=== PATIENT | female | born 1985 | race Hispanic/Latino ===

== ENCOUNTER 2016-12-15 09:46 | Inpatient (IN) | payer OTHER ==
[2016-12-15 10:05] LABS: Basophils % (Auto) 1.8 % (0.0-1.8); Eosinophils % (Auto) 3.1 % (0.0-4.3); Hematocrit 44.1 % (30.3-42.9); Hemoglobin 15.1 gm/dl (10.1-14.3); Mean Corpuscular HGB Conc 34 % (30-34); Mean Corpuscular Hemoglobin 31 pg (28-32); Mean Corpuscular Volume 92 fl (79-97); Platelet Count 191 K/mm3 (140-440); Red Cell Distribution Width 12.8 % (13.2-15.2); White Blood Count 3.9 K/mm3 (4.5-11.0)
--- NOTE | 2016-12-15 10:06 | Cat Scan Report ---
CT HEAD WITHOUT CONTRAST: HISTORY: CVA. Serial contiguous axial images were obtained through the cranium. Intravenous contrast material was not administered. The ventricles are normal in size and appearance. There is no mass effect or midline shift. No areas of abnormally increased or decreased attenuation are seen. No mass lesion is seen. The mastoid air cells and visualized portions of the sinuses are normal. IMPRESSION: Cranial CT scan within normal limits. These findings were discussed with Dr. Gan in the emergency department at 1003 hrs.
[2016-12-15 10:14] LABS: INR 0.95 (0.87-1.13)
[2016-12-15 10:15] LABS: Partial Thromboplastin Time 25.4 Sec. (24.2-36.6)
[2016-12-15] MEDS ORDERED: MORPHINE IV ONE (10:18)
[2016-12-15] MEDS ORDERED: ZOFRAN IV ONE (10:18)
[2016-12-15 10:21] LABS: Anion Gap 23 mmol/L; BUN/Creatinine Ratio 11.42; Blood Urea Nitrogen 8 mg/dL (7-17); Calcium 9.5 mg/dL (8.4-10.2); Carbon Dioxide 19 mmol/L (22-30); Chloride 101.2 mmol/L (98-107); Glucose 136 mg/dL (65-100); Potassium 3.9 mmol/L (3.6-5.0); Sodium 139 mmol/L (137-145)
--- NOTE | 2016-12-15 10:25 | Emergency Department Report ---
HPI - General Chief Complaint: Neuro Symptoms/Deficit Time Seen by Provider: 12/15/16 10:08 - HPI HPI: 31-year-old female presents to ED with left arm weakness and right facial droop that started upon awakening. Patient does not have medical history. Upon awakening she started feeling a left-sided tingling, then noticed that her left thumb was very happy to follow wishes could not pick it up. She noticed his drooping on the right side. When she went to bed last night she was completely normal. She went to bed around 940. She did not wake up in the middle of the night. She noticed this symptom as soon as she woke up if all putting her last time normal at 9:40 PM last night. NIH stroke scale : 2 ED Past Medical Hx - Past Medical History Additional medical history: Chron's disease - Surgical History Hx Appendectomy: Yes Additional Surgical History: C section x's2 - Social History Smoking Status: Current Every Day Smoker Substance Use Type: None - Medications Home Medications: Home Medications Medication Instructions Recorded Confirmed Last Taken Type Ibuprofen [Motrin] 200 mg PO Q6H PRN 12/15/16 12/15/16 Unknown History Loratadine [Claritin] 10 mg PO DAILY 12/15/16 12/15/16 Unknown History Oxymetazoline HCl [Nasal [place]] 30 ml NS PRN 12/15/16 12/15/16 Unknown History ED Review of Systems ROS: Stated complaint: POSS CVA Other details as noted in HPI Physical Exam - Physical Exam Vital Signs: Vital Signs 12/15/16 12/15/16 12/15/16 10:01 10:02 10:12 Temperature 98.7 F Pulse Rate 76 Respiratory 16 Rate Blood Pressure 124/81 Blood Pressure 124/81 [Right] O2 Sat by Pulse 100 100 Oximetry Physical Exam: - Physical Exam NIH stroke scale: 2 - General Limitations: No Limitations General appearance: alert, in no apparent distress, obese - Head Head exam: Present: atraumatic, normocephalic - Eye Eye exam: Present: normal appearance - ENT ENT exam: Present: mucous membranes moist - Neck Neck exam: Present: normal inspection - Respiratory Respiratory exam: Present: normal lung sounds bilaterally. Absent: respiratory distress - Cardiovascular Cardiovascular Exam: Present: normal rhythm, tachycardia. Absent: systolic murmur, diastolic murmur, rubs, gallop - GI/Abdominal GI/Abdominal exam: Present: soft, normal bowel sounds - Extremities Exam Extremities exam: Present: normal inspection - Back Exam Back exam: Present: normal inspection - Neurological Exam Neurological exam: Present: Right facial droop, left upper extremity strength 3 out of 5 - Psychiatric Psychiatric exam: normal affect and mood - Skin Skin exam: Present: warm, dry, intact, normal color. Absent: rash ED Course Vital Signs 12/15/16 12/15/16 12/15/16 10:01 10:02 10:12 Temperature 98.7 F Pulse Rate 76 Respiratory 16 Rate Blood Pressure 124/81 Blood Pressure 124/81 [Right] O2 Sat by Pulse 100 100 Oximetry ED Medical Decision Making - Lab Data Result diagrams: 12/15/16 09:57 12/15/16 09:57 Critical care attestation.: If time is entered above; I have spent that time in minutes in the direct care of this critically ill patient, excluding procedure time. ED Disposition Clinical Impression: CVA (cerebral vascular accident) Qualifiers: CVA mechanism: unspecified Qualified Code(s): I63.9 - Cerebral infarction, unspecified Disposition: DC-09 OP ADMIT IP TO THIS HOSP Is pt being admited?: Yes Does the pt Need Aspirin: Yes Condition: Stable
[2016-12-15] MEDS ORDERED: NACL ONE (10:27)
--- NOTE | 2016-12-15 11:09 | XRay Report ---
AP CHEST: HISTORY: chest pain AP view of the chest demonstrates a normal mediastinal and cardiac contour with clear lungs and normal bony and soft tissue structures. IMPRESSION: Unremarkable AP chest.
--- NOTE | 2016-12-15 11:17 | Cat Scan Report ---
CT angiography of the neck including axial images, reformatted sagittal and coronal images, and 3-D reconstructed images. History: Left hemiparesis. Findings: The origins of the 3 great vessels from the aortic arch appear normal. The common carotid arteries are normal throughout . Both common carotid bifurcations are patent with no evidence of atheromatous plaque. The proximal internal carotid arteries appear normal. The vertebral arteries are symmetrical and patent. Impression: Normal study.
--- NOTE | 2016-12-15 11:31 | Cat Scan Report ---
CT angiography of the head with axial images, reformatted sagittal and coronal images, and 3-D reconstructed images. History: Left kidney comparisons. Findings: The distal carotid arteries are normal. The right anterior and middle cerebral arteries appear normal with no filling defects or stenoses. The left anterior and middle cerebral arteries are also normal. There is no evidence of aneurysm or AVM. The distal vertebral arteries and basilar artery are widely patent. The posterior cerebral arteries are symmetrical and normal. Impression: Normal study.
[2016-12-15] MEDS ORDERED: ASPIRIN ONE (11:35)
[2016-12-15] MEDS ORDERED: ASPIRIN PO ONE (11:38)
--- NOTE | 2016-12-15 11:51 | Admit Criteria Form ---
Admission Criteria Documentation: NEUROLOGY GRG Clinical Indications for Admission to Inpatient Care (Place ' X' for any and all applicable criteria): Hospital admission is needed for appropriate care of the patient because of 1 or more of the following: [ ]I. Encephalitis [ ]II. Severe [employer] infections indicated by 1 or more of the following(1)(2)(3) : [ ]a) Intracranial abscess [ ]b) Spinal abscess or myelitis [ ]c) Tuberculous or other nonbacterial, nonviral [employer] infection(8) [ ]III. Vasculitis and 1 or more of the following(14)(15): []a) Altered mental status that is severe or persistent or other acute neurologic change []b) Psychosis []c) Seizure [ ]IV. Status epilepticus or repetitive seizures not controlled with emergent treatment [A] (7)(8) [ ]V. Altered mental status that is severe or persistent [ ]. Transient alteration in consciousness with high-risk etiology; examples include (12)(13): [ ]a) Cardiovascular source [ ]b) Cataplexy [ ]VII. Cerebral aneurysm requiring ANY ONE of the following(14): [ ]a) IV antihypertensives or vasoactive agents [ ]b) Sedation and analgesia for suspected leak [ ]c) Need for external ventricular drainage and cerebral perfusion pressure monitoring [ ]d) Emergent evaluation to determine need for surgical clipping or endovascular coiling by interventional radiology. If surgery is required ( Also use Craniotomy, Supratentorial, for Surgery of Bleeding Intracranial Aneurysm (for bleeding aneurysm) or Craniotomy, Supratentorial (for nonbleeding aneurysm) as appropriate. [ ]VIII. New-onset severe neurologic symptom requiring inpatient care indicated by ANY ONE of the following: [ ]a) Aphasia(15) [ ]b) Weakness (grade 3 or less) [ ]c) Paralysis (eg, hemiplegia) [ ]d) Spasticity(16) [ ]e) Dystonia [ ]e) Ataxia(17) [ ]f) Amnesia(18) [ ]g) Involuntary movements(19) [ ]h) Vertigo [ ] Visual loss [ ]i) Other severe neurologic finding (eg, papilledema, mass effect on imaging, myoclonus not treatable at alternative level of care (eg, observation care) [ ]IX. Guillain-[place] syndrome(20) [ ]X. Myasthenia gravis crisis or inpatient monitoring need as indicated by 1 or more of the following(21): [ ]a) Intensive treatment (eg, course of plasmapheresis) with inadequate outpatient situation to monitor patients status [ ]b) Inadequate airway protection [ ]c) Respiratory insufficiency requiring intubation or inpatient. monitoring [ ]d) Progressive dysphagia with failure to thrive [ ]XI. Multiple sclerosis or other acute demyelinating disease requiring inpatient care as indicated by 1 or more of the following (22)(23): [ ]a) Acute severe deterioration requiring inpatient treatment (eg, IV steroids, plasmapheresis, close observation) [ ]b) Acute complication requiring inpatient care (eg, sepsis, severe decubitus, aspiration) [ ]XII.Parkinson disease requiring inpatient care (Also use Optimal Recovery Care Criteria or General Recovery Criteria as appropriate) indicated by 1 or more of the following(25): [ ]a) Infection (eg, aspiration pneumonia) not treatable at alternative level of care [ ]b Dehydration that is severe or persistent [ ]c) Life-threatening agitation or psychotic behavior not treatable on emergency, observation care, or alternative level (eg, residential) basis [ ]d) Severe medication withdrawal effects (eg, freezing, neuroleptic malignant syndrome) not responsive to emergency and observation care treatment ( as appropriate) [ ]e) Other severe manifestation not treatable at alternative level of care [ ]XII. Amyotrophic lateral sclerosis with inpatient care needs as indicated by ANY ONE of the following(26): [ ]a) Acute complications (eg, aspiration pneumonia, sepsis ) requiring inpatient care ( see other optimal Recovery Guideline as appropriate) [ ]b) Dehydration that is severe persistent AND artificial support desired [ ]c) Inadequate airway protection AND artificial support desired [ ]d) Severe ventilatory insufficiency AND artificial support desired [ ]XIII. Myasthenia gravis crisis or inpatient monitoring need as indicated by 1 or more of the following(21): [] a) Inadequate airway protection []b) Respiratory insufficiency requiring intubation or inpatient monitoring []c) Progressive dysphagia with failure to thrive []d) Intensive treatment (e.g., course of plasmapheresis) with inadequate outpatient situation to monitor patients status [ ]XIV. Multiple sclerosis or other acute demyelinating disease requiring inpatient care indicated by 1 or more of the following[C](36)(43)(44)(45)(46): []a) Acute severe deterioration requiring inpatient treatment (eg, IV steroids, plasmapheresis, close observation) []b) Acute complication requiring inpatient care (eg, sepsis, severe decubitus, aspiration) [ ]XV. Intracranial hypertension (e.g., pseudotumor cerebri) requiring inpatient care (e.g., acute visual loss, inadequate oral intake) (47)(48)(49) [ ]XVI. Parkinson disease requiring inpatient care (Also use Optimal Recovery Care Criteria or General Recovery Criteria as appropriate) indicated by 1 or more of the following(25): [] a) Infection (e.g., aspiration pneumonia) not treatable at alternative level of care []b) Volume depletion not responsive to emergency and observation care treatment (as appropriate) []c) Life-threatening agitation or psychotic behavior not treatable on emergency, observation care, or alternative level (e.g., residential) basis []d) Severe medication withdrawal effects (e.g., freezing, neuroleptic malignant syndrome) not responsive to emergency and observation care treatment (as appropriate) []e) Other severe manifestation not treatable at alternative level of care [ ]XVII. Amyotrophic lateral sclerosis with inpatient care needs as indicated by1 or more of the following(42): []a) Acute complications (eg, aspiration pneumonia, sepsis) requiring inpatient care (see other Optimal Recovery Guideline or General Recovery Guideline as appropriate) []b) Dehydration that is severe or persistent AND artificial support desired []c) Inadequate airway protection AND artificial support desired []d) Severe ventilatory insufficiency AND artificial support desired [ ]XVIII. Severe myopathy, neuropathy, or other neuromuscular disease indicated by 1 or more of the following(42)(52)(53)(54): []a ) New-onset severe diffuse weakness (eg, strength 3/5 or less) []b) Severe dysphagia []c) Dyspnea at rest or with minimal exertion (new) []d) Inadequate airway protection []e) Inadequate ventilation indicated by 1 or more of the following : i) Partial pressure of carbon dioxide greater than 44 mm Hg ( 5.9 kPa) (new) ii) Reduced peak expiratory flow rate (new) iii) Vital capacity less than 50% of predicted (less than 15 mL/kg) iv) Peak inspiratory force less negative than -30 cm H2O (- 2942 Pa) [ ]XVII.Complications of congenital or degenerative disease (eg, infection, seizures, dehydration, injury) not responsive to emergency and observation care treatment (as appropriate ) [C](16)(29)(30) [ ]XVIII.Suspected or confirmed nerve or muscle toxic injury, including ANY ONE of the following: [ ]a) Rhabdomyolysis(31) i) Acute renal failure ii) Dehydration that is severe or persistent iii) Altered mental status that is severe or persistent iv) Electrolyte abnormality that remains after emergency or observation level care ( as appropriate) [ ]b) Botulism(32) [ ]c) Other severe toxin-induced sign or symptom [ ]XIX. Neurologic trauma requiring inpatient treatment (medical) indicated by ANY ONE of the following(33)(34): [ ]a) Vital signs or neurologic signs more frequently than every 4 hours [ ]b) Hyperosmolar therapy [ ]c) Respiratory monitoring [ ]d) Intracranial pressure monitoring and treatment [ ]e) Stabilization and immobilization device placement (eg, braces, body jacket) [ ]f) Intubation & mechanical ventilation for airway protection or therapeutic hyperventilation [ ]g) Other treatment or monitoring needed that requires inpatient level of care [ ]XX.Complications of neurologic devices (eg, ventricular shunt, neurostimulator) requiring 1 or more of the following(35)(36): [ ]a) IV antibiotics with monitoring while awaiting culture results [ ]b) Monitoring for hydrocephalus [X]XXI. Neurology condition symptom, or finding for which emergency and observation care have failed or are not considered appropriate. See General Criteria: Observation Care ISC, General Admission Criteria GRG, or Pediatric General Admission Criteria GRG guideline as appropriate. The original [facility] [employer] content created by [employer] has been revised. The portions of the content which have been revised are identified through the use of italic text or in bold, and [facility] has neither reviewed nor approved the modified material. All other unmodified content is copyright [facility] Please see references footnoted in the original [facility] edition 2016 Admission Criteria Met: Yes
[2016-12-15] MEDS ORDERED: NEURONTIN ONE (12:00)
[2016-12-15] MEDS ORDERED: MOTRIN PO ONE ×2 (14:00→16:01)
--- NOTE | 2016-12-15 14:30 | Cat Scan Report ---
CT of the chest without contrast. History:Left weakness Findings: The lungs are clear. There are no masses or nodules. The mediastinum and hilar regions are unremarkable although evaluation is less sensitive without intravenous contrast. There is no pleural fluid. Impression: Negative study.
[2016-12-15] MEDS ORDERED: NEURONTIN PO ONE (15:00)
[2016-12-15 20:54] LABS: Urine Drugs of Abuse Note Disclamer
[2016-12-15 21:03] LABS: Bilirubin,Urine NEG (Negative); Blood,Urine NEG (Negative); Ketones,Urine NEG (Negative); Leukocyte Esterase,Urine NEG (Negative); Mucus,Urine FEW /HPF; Nitrite,Urine NEG (Negative); Protein,Urine <15 mg/dL mg/dL (Negative); RBC,Urine < 1.0 /HPF (0.0-6.0); Urobilinogen,Urine < 2.0 mg/dL (<2.0); WBC,Urine < 1.0 /HPF (0.0-6.0)
[2016-12-15] MEDS ORDERED: DULCOLAX PR PRN (21:40)
[2016-12-15] MEDS ORDERED: DILAUDID IV PRN (21:40)
[2016-12-15] MEDS ORDERED: AMBIEN PO PRN (21:40)
[2016-12-15] MEDS ORDERED: ZOFRAN IV PRN (21:40)
[2016-12-15] MEDS ORDERED: TYLENOL PO PRN (21:40)
[2016-12-15] MEDS ORDERED: MILK OF MAGNESIA PO PRN (21:40)
--- NOTE | 2016-12-15 21:40 | History and Physical Report ---
History of Present Illness Date of examination: 12/15/16 Date of admission: 12/15/16 11:31 Medications and Allergies Allergies Allergy/AdvReac Type Severity Reaction Status Date / Time No Known Allergies Allergy Verified 12/15/16 10:42 Home Medications Medication Instructions Recorded Confirmed Last Taken Type Ibuprofen [Motrin] 200 mg PO Q6H PRN 12/15/16 12/15/16 Unknown History Loratadine [Claritin] 10 mg PO DAILY 12/15/16 12/15/16 Unknown History Oxymetazoline HCl [Nasal [place]] 30 ml NS PRN 12/15/16 12/15/16 Unknown History Exam - Constitutional Vitals: Temp Pulse Resp BP Pulse Ox 98.7 F 70 14 118/68 99 12/15/16 10:12 12/15/16 20:00 12/15/16 15:15 12/15/16 19:15 12/15/16 15:15 Results - Labs CBC & Chem 7: 12/15/16 09:57 12/15/16 09:57 Labs: Laboratory Last Values WBC 3.9 K/mm3 (4.5-11.0) L 12/15/16 09:57 RBC 4.80 M/mm3 (3.65-5.03) 12/15/16 09:57 Hgb 15.1 gm/dl (10.1-14.3) H 12/15/16 09:57 Hct 44.1 % (30.3-42.9) H 12/15/16 09:57 MCV 92 fl (79-97) 12/15/16 09:57 MCH 31 pg (28-32) 12/15/16 09:57 MCHC 34 % (30-34) 12/15/16 09:57 RDW 12.8 % (13.2-15.2) L 12/15/16 09:57 Plt Count 191 K/mm3 (140-440) 12/15/16 09:57 Lymph % (Auto) 30.5 % (13.4-35.0) 12/15/16 09:57 [place] % (Auto) 8.3 % (0.0-7.3) H 12/15/16 09:57 Eos % (Auto) 3.1 % (0.0-4.3) 12/15/16 09:57 Baso % (Auto) 1.8 % (0.0-1.8) 12/15/16 09:57 Lymph # 1.2 K/mm3 (1.2-5.4) 12/15/16 09:57 [place] # 0.3 K/mm3 (0.0-0.8) 12/15/16 09:57 Eos # 0.1 K/mm3 (0.0-0.4) 12/15/16 09:57 Baso # 0.1 K/mm3 (0.0-0.1) 12/15/16 09:57 Seg Neutrophils % 56.3 % (40.0-70.0) 12/15/16 09:57 Seg Neutrophils # 2.2 K/mm3 (1.8-7.7) 12/15/16 09:57 PT 13.2 Sec. (12.2-14.9) 12/15/16 09:57 INR 0.95 (0.87-1.13) 12/15/16 09:57 APTT 25.4 Sec. (24.2-36.6) 12/15/16 09:57 Thrombin Time 15.1 Sec. (15.1-19.6) 12/15/16 09:57 Sodium 139 mmol/L (137-145) 12/15/16 09:57 Potassium 3.9 mmol/L (3.6-5.0) 12/15/16 09:57 Chloride 101.2 mmol/L (98-107) 12/15/16 09:57 Carbon Dioxide 19 mmol/L (22-30) L 12/15/16 09:57 Anion Gap 23 mmol/L 12/15/16 09:57 BUN 8 mg/dL (7-17) 12/15/16 09:57 Creatinine 0.7 mg/dL (0.7-1.2) 12/15/16 09:57 Estimated GFR > 60 ml/min 12/15/16 09:57 BUN/Creatinine Ratio 11.42 % 12/15/16 09:57 Glucose 136 mg/dL (65-100) H 12/15/16 09:57 POC Glucose 78 (70-105) 12/15/16 20:57 Calcium 9.5 mg/dL (8.4-10.2) 12/15/16 09:57 Troponin T < 0.010 ng/mL (0.00-0.029) 12/15/16 09:57 Urine Color Yellow (Yellow) 12/15/16 20:45 Urine Turbidity Clear (Clear) 12/15/16 20:45 Urine pH 7.0 (5.0-7.0) 12/15/16 20:45 Ur Specific [place] 1.025 (1.003-1.030) 12/15/16 20:45 Urine Protein <15 mg/dl mg/dL (Negative) 12/15/16 20:45 Urine Glucose (UA) Neg mg/dL (Negative) 12/15/16 20:45 Urine Ketones Neg mg/dL (Negative) 12/15/16 20:45 Urine Blood Neg (Negative) 12/15/16 20:45 Urine Nitrite Neg (Negative) 12/15/16 20:45 Urine Bilirubin Neg (Negative) 12/15/16 20:45 Urine Urobilinogen < 2.0 mg/dL (<2.0) 12/15/16 20:45 Ur Leukocyte Esterase Neg (Negative) 12/15/16 20:45 Urine WBC (Auto) < 1.0 /HPF (0.0-6.0) 12/15/16 20:45 Urine RBC (Auto) < 1.0 /HPF (0.0-6.0) 12/15/16 20:45 U Epithel Cells (Auto) 3.0 /HPF (0-13.0) 12/15/16 20:45 Urine Mucus Few /HPF 12/15/16 20:45 Urine Opiates Screen Presumptive negative 12/15/16 20:45 Urine Methadone Screen Presumptive negative 12/15/16 20:45 Ur Barbiturates Screen Presumptive negative 12/15/16 20:45 Ur Phencyclidine Scrn Presumptive negative 12/15/16 20:45 Ur Amphetamines Screen Presumptive negative 12/15/16 20:45 U Benzodiazepines Scrn Presumptive negative 12/15/16 20:45 Urine Cocaine Screen Presumptive negative 12/15/16 20:45 U Marijuana (THC) Screen Presumptive negative 12/15/16 20:45 Drugs of Abuse Note Disclamer 12/15/16 20:45
[2016-12-15] MEDS ORDERED: SODIUM CHLORIDE FLUSH SYRINGE 10 ML IV PRN (21:43)
[2016-12-15] MEDS: D5NS 1,000 ML IV SCH (22:19)
[2016-12-15] MEDS: PEPCID IV SCH (22:20)
[2016-12-15] MEDS: ZOCOR PO SCH (22:20)
[2016-12-16 05:12] LABS: Basophils % (Auto) 1.2 % (0.0-1.8); Eosinophils % (Auto) 3.1 % (0.0-4.3); Hematocrit 41.1 % (30.3-42.9); Hemoglobin 14.1 gm/dl (10.1-14.3); Mean Corpuscular HGB Conc 34 % (30-34); Mean Corpuscular Hemoglobin 32 pg (28-32); Mean Corpuscular Volume 92 fl (79-97); Platelet Count 198 K/mm3 (140-440); Red Blood Count 4.46 M/mm3 (3.65-5.03); Red Cell Distribution Width 13.2 % (13.2-15.2); White Blood Count 5.3 K/mm3 (4.5-11.0)
[2016-12-16 05:38] LABS: Alanine Aminotransferase 26 units/L (7-56); Albumin 4.2 g/dL (3.9-5); Albumin/Globulin Ratio 1.8 %; Alkaline Phosphatase 67 units/L (35-129); Anion Gap 17 mmol/L; BUN/Creatinine Ratio 14.28; Blood Urea Nitrogen 10 mg/dL (7-17); Calcium 8.8 mg/dL (8.4-10.2); Carbon Dioxide 24 mmol/L (22-30); Chloride 106.2 mmol/L (98-107); Cholesterol 135 mg/dL (50-199); Glucose 101 mg/dL (65-100); HDL Cholesterol 69 mg/dL (40-59); LDL Cholesterol,Direct 58 mg/dL (50-130); Sodium 143 mmol/L (137-145); Total Protein 6.5 g/dL (6.3-8.2); Triglycerides 43 mg/dL (2-149)
[2016-12-16] MEDS: PERCOCET 5/325 PO PRN ×3 (06:35→20:24)
--- NOTE | 2016-12-16 07:54 | Event Note ---
Date: 12/16/16 See H/p in reports
--- NOTE | 2016-12-16 08:54 | History and Physical Report ---
CHIEF COMPLAINT: Left facial weakness and left arm weakness and numbness. HISTORY OF PRESENT ILLNESS: A 31-year-old female, who presents to the Emergency Room with left facial droop and also left arm numbness and left leg numbness and slight weakness on the left side. The patient noted that she was unable to lift things with the hand around 9:40 in the morning. The patient is under a lot of stress. Her symptoms have nearly resolved in the ER but except for the left facial droop. PAST MEDICAL HISTORY: Significant for Crohn's disease. PAST SURGICAL HISTORY: Significant for x 2. SOCIAL HISTORY: She smokes over 1-2 cigarettes a day. No substance abuse. FAMILY HISTORY: No hypertension, no diabetes. CURRENT MEDICATIONS: Claritin 10 mg daily, nasal spray, oxymetazoline 1 spray b.i.d. p.r.n., Motrin 200 q.6 hours p.r.n. REVIEW OF SYSTEMS: Significant for left facial droop and left arm numbness and weakness. The left arm numbness and weakness have resolved in the ER. Left facial droop persists. Otherwise, review of systems is essentially negative. A 14-point review of system was done. PHYSICAL EXAMINATION: GENERAL: Young female, cooperative during examination, cheerful. VITAL SIGNS: Blood pressure 124/81, temperature is 98.7, pulse is 100, and respirations are 14. 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 The patient is able to close the eyes. Unable to expand her cheek on the left side. Right-sided facial deviation present. NECK: Supple, no carotid artery bruit. LUNGS: Clear to auscultation and percussion. CARDIOVASCULAR: S1, S2 heard. No gallop, no murmur, no rub. Apical impulse in left fifth intercostal space and midclavicular line. ABDOMEN: Soft and benign. No hepatosplenomegaly. No guarding, no rigidity. Hernial orifices are normal. EXTREMITIES: Good pedal pulses. No pedal edema. CENTRAL NERVOUS SYSTEM: Left facial palsy present, consistent with Gardner's palsy. Left upper extremity and left lower extremity 5/5 power. Reflexes are normal. Sensory system is normal. Gait is normal. No cerebellar signs. SKIN: Normal. LABORATORY DATA: White count is 3900, H and H are 15.1 and 44.1, bicarbonate is 19, BUN and creatinine are [address] of the head was negative. EKG is noncontributory. Neck CT was normal study. Head CT was normal study. Chest x-ray was normal study. ASSESSMENT AND PLAN: 1. Transient ischemic attack, I am not in favor of cerebrovascular accident. Possible even though I am more in favor of conversion reaction secondary to stress. Symptoms resolved. CT is negative. We will get MRI/MRA, echocardiogram, and carotid duplex scan. The only possibility of CVA is patent foramen ovale in this patient. If MRI/MRA negative, I am more in favor of conversion reaction. Neurology consulted. 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 3. Allergic rhinitis, continue Claritin. 4. Deep venous thrombosis prophylaxis, Lovenox 40 mg subcutaneous daily. JOB# [id number] DAVID/JEAN-CLAUDE
--- NOTE | 2016-12-16 09:53 | Progress Note ---
Assessment and Plan Assessment and plan: 31-year-old woman with past medical history of Crohn's disease and tobacco abuse , who presented with left facial droop and left upper extremity and left lower numbness and weakness, the left-sided weakness resolved after a few hours, but she continues to have left facial droop and weakness, associated with headache and burning sensation on the left side of her face CT chest, image reviewed, no acute findings CT angiogram head and neck, image reviewed, no acute findings CT head and neck, image reviewed on acute findings CVA with infarct CTA and CT head and neck are negative, follow-up MR brain and neurology consults -Given her history of Crohn disease and family history of autoimmune diseases, We'll send off CATHRYN, cardiolipin, ESR, lupus anticoagulant and that the rheumatoid factor -We'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 She still complaining of left-sided facial droop. And she also feels that there is some pain and discomfort when she tries to swallow. Hospitalist Physical - Physical exam Narrative exam: General.: Appears well, no distress, nontoxic HEENT: Moist mucous membranes, extraocular muscles intact, no lymphadenopathy Neck: supple Cardiac: S1-S2 heard Lungs: clear to auscultation bilaterally Abdomen: soft , nontender, nondistended, bowel sounds positive Extremities: no edema clubbing or cyanosis Skin: no rash or lesions Neurologic: Left facial droop Psych: appropriate behavior, appropriate mood, corporative, judgment intact - Constitutional Vitals: Temp Pulse Resp BP Pulse Ox 97.9 F 56 L 16 92/45 100 12/16/16 07:48 12/16/16 07:48 12/16/16 07:48 12/16/16 07:48 12/16/16 07:48 Results - Labs CBC & Chem 7: 12/16/16 04:48 12/16/16 04:48 Labs: Laboratory Last Values WBC 5.3 K/mm3 (4.5-11.0) 12/16/16 04:48 RBC 4.46 M/mm3 (3.65-5.03) 12/16/16 04:48 Hgb 14.1 gm/dl (10.1-14.3) 12/16/16 04:48 Hct 41.1 % (30.3-42.9) 12/16/16 04:48 MCV 92 fl (79-97) 12/16/16 04:48 MCH 32 pg (28-32) 12/16/16 04:48 MCHC 34 % (30-34) 12/16/16 04:48 RDW 13.2 % (13.2-15.2) 12/16/16 04:48 Plt Count 198 K/mm3 (140-440) 12/16/16 04:48 Lymph % (Auto) 33.4 % (13.4-35.0) 12/16/16 04:48 [place] % (Auto) 9.7 % (0.0-7.3) H 12/16/16 04:48 Eos % (Auto) 3.1 % (0.0-4.3) 12/16/16 04:48 Baso % (Auto) 1.2 % (0.0-1.8) 12/16/16 04:48 Lymph # 1.8 K/mm3 (1.2-5.4) 12/16/16 04:48 [place] # 0.5 K/mm3 (0.0-0.8) 12/16/16 04:48 Eos # 0.2 K/mm3 (0.0-0.4) 12/16/16 04:48 Baso # 0.1 K/mm3 (0.0-0.1) 12/16/16 04:48 Seg Neutrophils % 52.6 % (40.0-70.0) 12/16/16 04:48 Seg Neutrophils # 2.8 K/mm3 (1.8-7.7) 12/16/16 04:48 PT 13.2 Sec. (12.2-14.9) 12/15/16 09:57 INR 0.95 (0.87-1.13) 12/15/16 09:57 APTT 25.4 Sec. (24.2-36.6) 12/15/16 09:57 Thrombin Time 15.1 Sec. (15.1-19.6) 12/15/16 09:57 Sodium 143 mmol/L (137-145) 12/16/16 04:48 Potassium 4.0 mmol/L (3.6-5.0) 12/16/16 04:48 Chloride 106.2 mmol/L (98-107) 12/16/16 04:48 Carbon Dioxide 24 mmol/L (22-30) 12/16/16 04:48 Anion Gap 17 mmol/L 12/16/16 04:48 BUN 10 mg/dL (7-17) 12/16/16 04:48 Creatinine 0.7 mg/dL (0.7-1.2) 12/16/16 04:48 Estimated GFR > 60 ml/min 12/16/16 04:48 BUN/Creatinine Ratio 14.28 % 12/16/16 04:48 Glucose 101 mg/dL (65-100) H 12/16/16 04:48 POC Glucose 94 (70-105) 12/16/16 07:26 Calcium 8.8 mg/dL (8.4-10.2) 12/16/16 04:48 Total Bilirubin 0.80 mg/dL (0.1-1.2) 12/16/16 04:48 AST 24 units/L (5-40) 12/16/16 04:48 ALT 26 units/L (7-56) 12/16/16 04:48 Alkaline Phosphatase 67 units/L (35-129) 12/16/16 04:48 Troponin T < 0.010 ng/mL (0.00-0.029) 12/15/16 09:57 Total Protein 6.5 g/dL (6.3-8.2) 12/16/16 04:48 Albumin 4.2 g/dL (3.9-5) 12/16/16 04:48 Albumin/Globulin Ratio 1.8 % 12/16/16 04:48 Triglycerides 43 mg/dL (2-149) 12/16/16 04:48 Cholesterol 135 mg/dL (50-199) 12/16/16 04:48 LDL Cholesterol Direct 58 mg/dL (50-130) 12/16/16 04:48 HDL Cholesterol 69 mg/dL (40-59) H 12/16/16 04:48 Cholesterol/HDL Ratio 1.95 % 12/16/16 04:48 Urine Color Yellow (Yellow) 12/15/16 20:45 Urine Turbidity Clear (Clear) 12/15/16 20:45 Urine pH 7.0 (5.0-7.0) 12/15/16 20:45 Ur Specific [place] 1.025 (1.003-1.030) 12/15/16 20:45 Urine Protein <15 mg/dl mg/dL (Negative) 12/15/16 20:45 Urine Glucose (UA) Neg mg/dL (Negative) 12/15/16 20:45 Urine Ketones Neg mg/dL (Negative) 12/15/16 20:45 Urine Blood Neg (Negative) 12/15/16 20:45 Urine Nitrite Neg (Negative) 12/15/16 20:45 Urine Bilirubin Neg (Negative) 12/15/16 20:45 Urine Urobilinogen < 2.0 mg/dL (<2.0) 12/15/16 20:45 Ur Leukocyte Esterase Neg (Negative) 12/15/16 20:45 Urine WBC (Auto) < 1.0 /HPF (0.0-6.0) 12/15/16 20:45 Urine RBC (Auto) < 1.0 /HPF (0.0-6.0) 12/15/16 20:45 U Epithel Cells (Auto) 3.0 /HPF (0-13.0) 12/15/16 20:45 Urine Mucus Few /HPF 12/15/16 20:45 Urine Opiates Screen Presumptive negative 12/15/16 20:45 Urine Methadone Screen Presumptive negative 12/15/16 20:45 Ur Barbiturates Screen Presumptive negative 12/15/16 20:45 Ur Phencyclidine Scrn Presumptive negative 12/15/16 20:45 Ur Amphetamines Screen Presumptive negative 12/15/16 20:45 U Benzodiazepines Scrn Presumptive negative 12/15/16 20:45 Urine Cocaine Screen Presumptive negative 12/15/16 20:45 U Marijuana (THC) Screen Presumptive negative 12/15/16 20:45 Drugs of Abuse Note Disclamer 12/15/16 20:45
--- NOTE | 2016-12-16 11:27 | Consultation ---
History of Present Illness Consult date: 12/16/16 Requesting physician: KEO BRYANT Reason for Consult: TIA History of present illness: Neurology consultation note: 12/16/2016 is a 31-year-old white female patient came to the emergency room at around 10:00 on the morning 12/15/2016 with history of left facial numbness and droopiness as well as tingly and numb feeling in the left arm and left leg and at some point also noted similar symptoms in the right side of the body and the right side of the face. She was promptly evaluated by the emergency room staff and the stroke team, however, her symptoms resolved almost completely while she was being assessed in the ER and already had a negative CT scan of the brain. This patient apparently did not qualify for any acute intervention especially IV TPA or endovascular thrombectomy. She had a completely normal CTA of the neck and the brain. Currently she complains of headaches and mild numbness of the left side of the face but otherwise no symptoms in the extremities. She remains fully ambulatory in the room. She said that she was fine the night of 12/14/2016 when she went to sleep. She woke up on the morning of 12/15/2016 and noted that left side of the face was sort of "puffy". About 30 minutes later she noted numbness of the left arm and going down to the left leg and about an hour later she thought that similar symptoms were developing in the right arm and right leg and even the right side of the face. She did not have any significant headaches at that time. No vision disturbance especially diplopia or vertigo. No incontinence of bladder. She never had such symptoms in her life before but she admitted to being under distress lately. No nausea or vomiting. She has no previous history of migraines. No hypertension diabetes or hyperlipidemia or or any underlying heart condition that she is aware of. She smokes 1 cigarette a day for the past couple of years. She has a hormonal IUD in place for the past 3 years. She was diagnosed with Crohn's disease at age 16 and was treated with Remicade for several years. She said that she has not had any problems with Crohn's or any flareup of the disease in more than 10 years now. No recent febrile illness. She said that she recently returned from a beach vacation and had noted some left arm pain that lasted only 5 minutes. No recent falls so head or neck trauma. Family history: Her grandmother has Sjogren's disease and also had a small stroke some years ago. Otherwise no family history migraine or heart disease or strokes. Patient has no known allergies to medications, and currently not on any prescription medications at home. Gen. exam: Blood pressure 124/80, pulse is 78/m, no cranial or carotid bruit. No mastoid tenderness. No skin rash. No edema. Feet and dorsalis pedis palpable. Patient said she has a history of varicose veins and had some procedure done in the past otherwise no recent leg swelling or shortness of breath or leg pain. Central nervous system exam: Higher cortical functions: Patient alert and well communicative. Normal speech, memory and intelligence. No dysarthria or aphasia. Cranial nerves: Optic fundi normal. Pupils 3 mm equal and reactive, full eye movements, no nystagmus at all. Very mild facial asymmetry noted while patient was talking and the right nasolabial fold appeared to be flatter compared to the left side, at times slight drawing of the left angle of the mouth while talking. Otherwise no definite weakness noted in the upper part of the face or the forehead region. Tongue and palate appear to be unremarkable. Hearing completely normal. Motor system: Normal tone and strength in all extremities, no incoordination. No wasting or fasciculations. No tremors or myoclonus. Gait appeared to be unremarkable. Sensory exam: Completely normal including cortical sensations. Reflexes: Deep tendon reflexes bilaterally 2+ and symmetrical, both plantar reflexes are flexor. Impression: #1. Acute onset of left facial numbness followed by left hemisensory symptoms and thereafter similar symptoms on the right side of the body noted upon awakening on the morning of 12/15/2016. Currently all she has is slight facial asymmetry which also appears to be somewhat atypical for Gardner's palsy or I wonder if this was a "stroke mimic" rather than "wake-up stroke". Doubt TIA. Other remote possibility could be some sort of a "migraine syndrome" however, patient has no previous history of migraines. It should be noted that her history of Crohn's disease and hormonal IUD as well as smoking could increase statistical risk of stroke or TIAs. CT scan of the brain, CTA of the neck and brain unremarkable. #2. Crohn's disease, smoker. Recommendations: MRI and MRA of the brain as ordered, echocardiogram and carotid Doppler studies. I would also like to order a sedimentation rate, CATHRYN, rheumatoid factor, anti-cardiolipin antibodies, lupus anticoagulant titers to complete the workup. I explained to the patient and her who was present at the bedside that these blood results may not be available for several days and should follow up with her primary care physician or a neurologist on outpatient basis to review these test results for further management. She can be discharged home today or tomorrow if nothing unusual on MRIs or echocardiogram. Thank you very much for this consultation. Cosmo Deluna M.D./ Neurology 12/16/2016 Medications and Allergies Allergies Allergy/AdvReac Type Severity Reaction Status Date / Time No Known Allergies Allergy Verified 12/15/16 10:42 Home Medications Medication Instructions Recorded Confirmed Last Taken Type Ibuprofen [Motrin] 200 mg PO Q6H PRN 12/15/16 12/15/16 Unknown History Loratadine [Claritin] 10 mg PO DAILY 12/15/16 12/15/16 Unknown History Oxymetazoline HCl [Nasal [place]] 30 ml NS PRN 12/15/16 12/15/16 Unknown History Active Meds: Active Medications Acetaminophen (Tylenol) 650 mg PO Q4H PRN PRN Reason: Pain MILD(1-3)/Fever >100.5/SWEET Bisacodyl (Dulcolax) 10 mg MD QDAY PRN PRN Reason: Constipation unrelieved by MOM Famotidine (Pepcid) 20 mg IV BID [facility] Last Admin: 12/15/16 22:20 Dose: 20 mg Hydromorphone HCl (Dilaudid) 0.5 mg IV Q3H PRN PRN Reason: Pain , Severe (7-10) Dextrose/Sodium Chloride (D5ns) 1,000 mls @ 100 mls/hr IV DIRECT [facility] Last Admin: 12/15/16 22:19 Dose: 100 mls/hr Magnesium Hydroxide (Milk Of Magnesia) 30 ml PO Q4H PRN PRN Reason: Constipation Ondansetron HCl (Zofran) 4 mg IV Q8H PRN PRN Reason: N/V unrelieved by Reglan Oxycodone/Acetaminophen (Percocet 5/325) 1 tab PO Q6H PRN PRN Reason: Pain, Moderate (4-6) Last Admin: 12/16/16 06:35 Dose: 1 tab Simvastatin (Zocor) 20 mg PO QHS TAE Last Admin: 12/15/16 22:20 Dose: 20 mg Sodium Chloride (Sodium Chloride Flush Syringe 10 Ml) 10 ml IV PRN PRN PRN Reason: LINE FLUSH Zolpidem Tartrate (Ambien) 5 mg PO QHS PRN PRN Reason: Insomnia Physical Examination - Vital Signs Vital Signs: Vital Signs BP 124/81 12/15/16 10:01 Results - Laboratory Findings CBC and BMP: 12/16/16 04:48 12/16/16 04:48 Abnormal Lab Findings: Abnormal Labs 12/16/16 12/16/16 04:48 04:48 [place] % (Auto) 9.7 H Glucose 101 H HDL Cholesterol 69 H
--- NOTE | 2016-12-16 12:34 | Magnetic Resonance Report ---
MRI OF THE BRAIN WITHOUT CONTRAST: HISTORY: Stroke PROCEDURE: Multiplanar, multisequence MR imaging of the brain without IV contrast was performed. FINDINGS: Compared to the CT head performed 12/15/16. The brain parenchyma signal intensity and its thompson white interface are within normal limits on all sequences. No evidence for acute ischemia, hemorrhage or mass. No chronic infarct or extra-axial fluid collection. The midline structures are central. The basal cisterns are patent. Normal ventricular size. The orbital cavities and sella turcica demonstrate no abnormality. The visualized paranasal sinuses and mastoid air cells are well aerated. IMPRESSION: Unremarkable non-enhanced MRI of the brain.
--- NOTE | 2016-12-16 12:35 | Magnetic Resonance Report ---
MRA HEAD WITHOUT CONTRAST HISTORY: Stroke. [id number] imaging with MIP reformations of the [place] is submitted. The arteries appear widely patent and free of hemodynamically significant stenosis or aneurysm dilatation. origin of the right CORPORATE PILOT is noted. Both vertebral arteries are identified appearing patent as well. IMPRESSION: Normal variant MRA head.
[2016-12-16] MEDS: PEPCID IV SCH ×2 (12:48→22:19)
[2016-12-16] MEDS: D5NS 1,000 ML IV SCH ×2 (12:48→23:26)
[2016-12-16] MEDS ORDERED: PROTONIX PO ONE (16:00)
[2016-12-16] MEDS: ZOCOR PO SCH (22:19)
[2016-12-17 07:33] VITALS: BP 95/45
--- NOTE | 2016-12-17 08:52 | Discharge Summary ---
Providers - Providers Date of Admission: 12/15/16 11:31 Attending physician: KT SANON MD 12/15/16 21:40 Consult to Physician [CONS] Routine Consulting Provider: JUAN LUIS HYMAN Reason For Exam: Gardner's palsy Place consult to:: neuro Notified:: yes Comment:: put on list 12/15/16 21:43 Occupational Therapy Evaluate and Treat [CONS] Routine Comment: Reason For Exam: Neuro deficits Physical Therapy Evaluation and Treat [CONS] Routine Comment: Reason For Exam: Neuro deficits Speech Therapy Evaluation and Treat [CONS] Routine Reason For Exam: swallow eval Primary care physician: [employer] Hospitalization Condition: Stable Pertinent studies: CT chest, image reviewed, no acute findings CT angiogram head and neck, image reviewed, no acute findings CT head and neck, image reviewed on acute findings MRI/MRA Brain, no acute findings Hospital course: 31-year-old woman with past medical history of Crohn's disease and tobacco abuse , who presented with left facial droop and left upper extremity and left lower numbness and weakness, the left-sided weakness resolved after a few hours, but she continues to have left facial droop and weakness, associated with headache and burning sensation on the left side of her face. The patient has a history of Crohn's disease and a strong family history of lupus, Sjogren's disease, autoimmune diseases in multiple family members. The weakness in her left arm and left leg markedly improved, as did the facial droop. She was seen by neurology, she went on to have CT of her head, MRI of her brain that were negative for stroke. But clinically patient definitely did have focal deficits and did have a stroke. Given her history and family history we are highly suspecting an autoimmune etiology. Differential patient was put on steroids, she clinically improved. She is being sent home on aspirin and a steroid taper. I personally spoke to the hub doctor at [facility] who will be organizing a neurology and rheumatology appointment for her within the next week. She had complained of transient dysphagia which is most likely due to the CVA, she went on to have a modified barium swallow study that was negative for any aspiration. She was counseled about tobacco cessation, she verbalized understanding Discharge diagnoses CVA with infarct Gardner's palsy Dysphasia Tobacco abuse Disposition: - TO HOME OR SELFCARE Time spent for discharge: 35 minutes Core Measure Documentation - Palliative Care Palliative Care/ Comfort Measures: Not Applicable - Core Measures Any of the following diagnoses?: stroke - Stroke Discharge Requirements Statin for LDL = or >70 mg/dl on DC: Not Applicable Anticoag for atrial fib/atrial flutter: Not Applicable Antithrombotic for ischemic stroke: Yes Exam - Physical Exam Narrative exam: General.: Appears well, no distress, nontoxic HEENT: Moist mucous membranes, extraocular muscles intact, no lymphadenopathy Neck: supple Cardiac: S1-S2 heard Lungs: clear to auscultation bilaterally Abdomen: soft , nontender, nondistended, bowel sounds positive Extremities: no edema clubbing or cyanosis Skin: no rash or lesions Neurologic: Left facial droop, mild left-sided hemiparesis, 4 out of 5 strength of the left upper and lower extremity Psych: appropriate behavior, appropriate mood, corporative, judgment intact - Constitutional Vitals: Temp Pulse Resp BP Pulse Ox 97.8 F 74 16 95/45 97 12/17/16 07:31 12/17/16 05:34 12/17/16 05:28 12/17/16 07:31 12/17/16 05:28 Plan Follow up with: PRIMARY CARE, [Primary Care Provider] - 3-5 Days Prescriptions: Aspirin EC [Aspirin Enteric Coated TAB] 81 mg PO QDAY #30 tablet. predniSONE [Deltasone] 10 mg PO .TAPER #48 tab
--- NOTE | 2016-12-17 10:44 | Fluoroscopy Report ---
Modified barium swallow: Abnormal swallowing sensation. Lateral imaging of the neck performed during administration of opaque material by speech therapy. No swallowing abnormalities identified.
[2016-12-17] MEDS: PEPCID IV SCH (11:04)
== END 2016-12-17 13:54 | disposition home or self-care (01) | DRG 65 ==
LOC: ED 09:46 → 4A 11:31
PROVIDERS: ADMIT Internal Medicine; ATTEND Internal Medicine
DX: I63.9 Cerebral infarction, unspecified (principal); K50.90 Crohn's disease, unspecified, without complications; G81.94 Hemiplegia, unspecified affecting left nondominant side; F17.210 Nicotine dependence, cigarettes, uncomplicated; G51.0 Bell's palsy; J30.9 Allergic rhinitis, unspecified; R13.10 Dysphagia, unspecified; Z98.891 History of uterine scar from previous surgery; Z71.6 Tobacco abuse counseling
CPT/HCPCS: 36415; 70450; 70496; 70498; 70544; 70551; 71010; 71250; 74230; 80048; 80053; 80061; 80307; 81001; 82962; 84484; 85025; 85610; 85652; 85670; 85730; 86038; 86147; 86618; 93005; 93010; 93306; 93880; J2930; J7042; Q9967